=== PATIENT | female | born 1970 | race Caucasian/White ===

== ENCOUNTER → 2024-02-17 | Outpatient (CLI) | payer BC | END | disposition home or self-care (01) | LOC: RAD 16:06 | PROVIDERS: ATTEND Nurse Practitioner Family | DX: M47.26 Other spondylosis with radiculopathy, lumbar region (principal); M46.1 Sacroiliitis, not elsewhere classified; M76.9 Unspecified enthesopathy, lower limb, excluding foot; Z96.641 Presence of right artificial hip joint | CPT/HCPCS: 72100; 73502 ==